=== PATIENT | male | born 1960 | race Two or more races ===

== ENCOUNTER 2020-08-31 19:48 | Inpatient (IN) | payer OTHER ==
[~2020-08-31] VITALS: Ht 172.7 cm; Wt 79.5 kg
[2020-08-31 20:56] LABS: BASOPHILS % (AUTO) 0.8 % (0.0-2.0); EOSINOPHILS % (AUTO) 3.9 % (1.0-6.0); HEMATOCRIT 44.2 % (41-53); HEMOGLOBIN 15.1 g/dL (13.5-17.5); LYMPHOCYTES # (AUTO) 1.7 K/uL (1.0-4.8); LYMPHOCYTES % (AUTO) 27.7 % (22.0-44.0); MEAN CORPUSCULAR HEMOGLOBIN 32.8 pg (26.0-34.0); MEAN CORPUSCULAR HGB CONC 34.2 G/dL (31.0-37.0); MEAN CORPUSCULAR VOLUME 96 fL (80-100); MONOCYTES # (AUTO) 0.5 K/uL (0.1-1.0); MONOCYTES % (AUTO) 8.2 % (2.0-9.0); NEUTROPHILS # (AUTO) 3.7 K/uL (1.8-7.7); NEUTROPHILS % (AUTO) 59.4 % (40.0-70.0); PLATELET COUNT (AUTO) 263 K/uL (150-450); RED BLOOD CELL COUNT(AUTO) 4.61 MIL/uL (4.50-5.90); RED CELL DISTRIBUTION WIDTH 12.8 % (11.5-14.5)
[2020-08-31 21:17] LABS: ANION GAP 7 mmol/L (8-16); CALCIUM, TOTAL 9.7 mg/dL (8.8-10.5); CARBON DIOXIDE 28 mmol/L (22-29); CHLORIDE 102 mmol/L (98-107); CREATININE 0.61 mg/dL (0.60-1.30); GLOMERULAR FILTR. RATE CALC > 60 mL/min (>60); GLUCOSE,RANDOM 85 mg/dL (70-110); POTASSIUM 4.1 mmol/L (3.5-5.1); SODIUM SERUM 137 mmol/L (136-145); UREA NITROGEN, BLOOD 10 mg/dL (7-18)
[2020-08-31 21:25] LABS: ALANINE AMINOTRANSFERASE 17 U/L (12-78); ALBUMIN 3.7 g/dL (3.4-5.0); ALKALINE PHOSPHATASE 128 U/L (46-116); ASPARTATE AMINOTRANSFERASE 37 U/L (15-37); BILIRUBIN,TOTAL 0.7 mg/dL (0.1-1.0); TOTAL PROTEIN, SERUM 8.4 g/dL (6.4-8.2)
[2020-08-31] MEDS ORDERED: CARB-98 GT (21:46)
[2020-08-31] MEDS ORDERED: AMAN-6 GT (21:46)
[2020-08-31] MEDS ORDERED: ENOX30DI5 SQ (21:46)
[2020-08-31] MEDS ORDERED: ENTA200T18 GT (21:46)
[2020-08-31] MEDS ORDERED: BISA-151 PR (21:46)
[2020-08-31] MEDS ORDERED: CEFX2I IV (21:46)
[2020-08-31] MEDS ORDERED: HYDR-4031 GT (21:46)
[2020-08-31 22:24] LABS: COVID AG,FIA SOURCE NASOPHARYNGEAL
[2020-08-31 22:28] LABS: APPEARANCE,URINE CLEAR (CLEAR); BILIRUBIN,URINE NEGATIVE (NEGATIVE); GLUCOSE, URINE (UA) NEGATIVE (NEGATIVE); KETONES,URINE 40 mg/dL (NEGATIVE); LEUKOCYTE ESTERASE ,URINE MODERATE (NEGATIVE); OCCULT BLOOD,URINE NEGATIVE (NEGATIVE); PROTEIN,URINE NEGATIVE (NEGATIVE); UROBILINOGEN,URINE 0.2 mg/dL (<=1.0)
[2020-08-31 22:30] LABS: BACTERIA,URINE Rare /HPF (None Seen); NITRATE,URINE NEGATIVE (NEGATIVE); RBC,URINE 0-2 /HPF (0-2); SQUAMOUS EPITHELIAL CELL,UR Rare /LPF (None Seen)
[2020-08-31 22:34] LABS: AMPHET/METH SCREEN,URINE NEGATIVE (NEGATIVE); BARBITURATE SCREEN, URINE NEGATIVE (NEGATIVE); BENZODIAZEPINES SCREEN,URINE NEGATIVE (NEGATIVE); CANNABINOID SCREEN,URINE NEGATIVE (NEGATIVE); COCAINE SCREEN,URINE NEGATIVE (NEGATIVE); METHADONE SCREEN, URINE NEGATIVE (NEGATIVE); OPIATE SCREEN,URINE NEGATIVE (NEGATIVE); PHENCYCLIDINE SCREEN,URINE NEGATIVE (NEGATIVE)
[2020-09-01] MEDS ORDERED: MORPHINE SULFATE 2 MG/ML SYRINGE IVP PRN (00:15)
[2020-09-01] MEDS ORDERED: BISACODYL 10 MG RECTAL RECTAL SUPPOSITORY PR PRN (00:15)
[2020-09-01] MEDS ORDERED: ALBUTEROL SULFATE 2.5 MG/0.5 ML NEB SOLUTION NEB PRN (00:15)
[2020-09-01] MEDS ORDERED: ONDANSETRON HCL 4 MG/2 ML VIAL IVP PRN (00:15)
[2020-09-01] MEDS ORDERED: MAGNESIUM HYDROXIDE SUSPENSION 30 ML UDCUP PO PRN (00:15)
[2020-09-01] MEDS ORDERED: ACETAMINOPHEN 325 MG TABLET PO PRN (00:15)
[2020-09-01] MEDS ORDERED: BISACODYL 5 MG EC TABLET PEG PRN (00:15)
[2020-09-01] MEDS ORDERED: IPRATROPIUM BROMIDE 0.5 MG/2.5 ML NEB SOLUTION NEB PRN (00:15)
[2020-09-01] MEDS ORDERED: CARB-98 GT (03:13)
[2020-09-01] MEDS ORDERED: ENTA200T18 GT (03:13)
[2020-09-01] MEDS ORDERED: HEPARIN SODIUM,PORCINE 5,000 UNITS/ML VIAL SQ SCH (08:00)
[2020-09-01] MEDS: ENTACAPONE 200 MG TABLET GT SCH ×3 (09:00→20:56)
[2020-09-01] MEDS: AMANTADINE HCL 100 MG CAPSULE GT SCH ×2 (09:00→20:56)
[2020-09-01] MEDS: CARBIDOPA/LEVODOPA 25-100 MG TABLET GT SCH ×4 (09:00→20:56)
[2020-09-01] MEDS ORDERED: DOCUSATE SODIUM 100 MG CAPSULE PO SCH (09:00)
[2020-09-01] MEDS: ENOXAPARIN SODIUM 30 MG/0.3 ML PF SYRINGE SQ SCH (09:00)
[2020-09-01] MEDS ORDERED: CefTRIAXone SODIUM 2 GM/VIAL IV SCH (09:00)
[2020-09-01] MEDS ORDERED: CefTRIAXone 1 GM/DEXTROSE 50 ML IV SCH (09:00)
[2020-09-01] MEDS: CefTRIAXone SODIUM 2 GM in DEXTROSE 5%-WATER 50 ML IV SCH (09:00)
[2020-09-01 13:34] VITALS: BP 128/78
[2020-09-01 16:09] VITALS: BP 132/75
[2020-09-01 19:03] VITALS: BP 128/76
[2020-09-01 20:02] VITALS: BP 126/81
[2020-09-01] MEDS: ZOLPIDEM TARTRATE 5 MG TABLET PO PRN (20:56)
[2020-09-01] MEDS: HYDROCODONE/ACETAMINOPHEN 5-325 MG TABLET PO PRN (20:57)
[2020-09-01] MEDS: DOCUSATE SODIUM 100 MG/10 ML LIQUID UDCUP GT SCH (20:57)
[2020-09-01 22:59] VITALS: BP 109/65
[2020-09-02 03:45] VITALS: BP 101/67
[2020-09-02] MEDS: HYDROCODONE/ACETAMINOPHEN 5-325 MG TABLET PO PRN (05:33)
[2020-09-02 06:15] LABS: BASOPHILS % (AUTO) 0.4 % (0.0-2.0); EOSINOPHILS % (AUTO) 3.2 % (1.0-6.0); HEMATOCRIT 41.2 % (41-53); HEMOGLOBIN 14.3 g/dL (13.5-17.5); LYMPHOCYTES # (AUTO) 1.6 K/uL (1.0-4.8); LYMPHOCYTES % (AUTO) 28.6 % (22.0-44.0); MEAN CORPUSCULAR HGB CONC 34.6 G/dL (31.0-37.0); MEAN CORPUSCULAR VOLUME 95 fL (80-100); MONOCYTES # (AUTO) 0.6 K/uL (0.1-1.0); MONOCYTES % (AUTO) 9.8 % (2.0-9.0); NEUTROPHILS # (AUTO) 3.3 K/uL (1.8-7.7); PLATELET COUNT (AUTO) 282 K/uL (150-450); RED BLOOD CELL COUNT(AUTO) 4.33 MIL/uL (4.50-5.90); RED CELL DISTRIBUTION WIDTH 12.7 % (11.5-14.5)
[2020-09-02 06:36] LABS: ALANINE AMINOTRANSFERASE 36 U/L (12-78); ALBUMIN 3.5 g/dL (3.4-5.0); ALKALINE PHOSPHATASE 122 U/L (46-116); ANION GAP 6 mmol/L (8-16); ASPARTATE AMINOTRANSFERASE 24 U/L (15-37); BILIRUBIN,TOTAL 0.6 mg/dL (0.1-1.0); CALCIUM, TOTAL 9.2 mg/dL (8.8-10.5); CARBON DIOXIDE 29 mmol/L (22-29); CHLORIDE 102 mmol/L (98-107); GLOMERULAR FILTR. RATE CALC > 60 mL/min (>60); GLUCOSE,RANDOM 111 mg/dL (70-110); POTASSIUM 3.8 mmol/L (3.5-5.1); SODIUM SERUM 137 mmol/L (136-145); TOTAL PROTEIN, SERUM 7.3 g/dL (6.4-8.2); UREA NITROGEN, BLOOD 19 mg/dL (7-18)
[2020-09-02 08:16] VITALS: BP 100/59
[2020-09-02] MEDS: DOCUSATE SODIUM 100 MG/10 ML LIQUID UDCUP GT SCH ×2 (08:45→21:25)
[2020-09-02] MEDS: AMANTADINE HCL 100 MG CAPSULE GT SCH ×2 (08:46→21:25)
[2020-09-02] MEDS: ENOXAPARIN SODIUM 30 MG/0.3 ML PF SYRINGE SQ SCH (08:46)
[2020-09-02] MEDS: CARBIDOPA/LEVODOPA 25-100 MG TABLET GT SCH ×4 (08:46→21:25)
[2020-09-02] MEDS: ENTACAPONE 200 MG TABLET GT SCH ×3 (08:46→21:25)
[2020-09-02] MEDS: CefTRIAXone SODIUM 2 GM in DEXTROSE 5%-WATER 50 ML IV SCH (08:46)
[2020-09-02] MEDS ORDERED: SODIUM CHLORIDE 0.9% 250 ML IV ONE (08:51)
[2020-09-02 11:24] LABS: PHOSPHORUS 3.1 mg/dL (2.5-4.9)
[2020-09-02 16:27] VITALS: BP 113/74
[2020-09-02 17:48] LABS: AMPHET/METH SCREEN,URINE NEGATIVE (NEGATIVE); BARBITURATE SCREEN, URINE NEGATIVE (NEGATIVE); BENZODIAZEPINES SCREEN,URINE NEGATIVE (NEGATIVE); CANNABINOID SCREEN,URINE NEGATIVE (NEGATIVE); COCAINE SCREEN,URINE NEGATIVE (NEGATIVE); METHADONE SCREEN, URINE NEGATIVE (NEGATIVE); OPIATE SCREEN,URINE NEGATIVE (NEGATIVE)
[2020-09-02 18:00] LABS: PHENCYCLIDINE SCREEN,URINE NEGATIVE (NEGATIVE)
[2020-09-02 20:09] VITALS: BP 128/77
[2020-09-02] MEDS: RisperiDONE 1 MG TABLET PO SCH (21:25)
[2020-09-03 00:26] VITALS: BP 110/71
[2020-09-03 04:02] VITALS: BP 104/71
[2020-09-03 06:48] LABS: BASOPHILS % (AUTO) 0.7 % (0.0-2.0); EOSINOPHILS % (AUTO) 3.4 % (1.0-6.0); LYMPHOCYTES # (AUTO) 1.5 K/uL (1.0-4.8); LYMPHOCYTES % (AUTO) 28.9 % (22.0-44.0); MEAN CORPUSCULAR HEMOGLOBIN 33.3 pg (26.0-34.0); MEAN CORPUSCULAR VOLUME 95 fL (80-100); MONOCYTES # (AUTO) 0.5 K/uL (0.1-1.0); MONOCYTES % (AUTO) 9.7 % (2.0-9.0); NEUTROPHILS % (AUTO) 57.3 % (40.0-70.0); PLATELET COUNT (AUTO) 254 K/uL (150-450); RED CELL DISTRIBUTION WIDTH 12.5 % (11.5-14.5)
[2020-09-03 07:14] LABS: ALANINE AMINOTRANSFERASE 26 U/L (12-78); ALBUMIN 3.5 g/dL (3.4-5.0); ALKALINE PHOSPHATASE 111 U/L (46-116); ANION GAP 7 mmol/L (8-16); ASPARTATE AMINOTRANSFERASE 24 U/L (15-37); BILIRUBIN,TOTAL 0.6 mg/dL (0.1-1.0); CALCIUM, TOTAL 9.2 mg/dL (8.8-10.5); CARBON DIOXIDE 29 mmol/L (22-29); CHLORIDE 103 mmol/L (98-107); GLOMERULAR FILTR. RATE CALC > 60 mL/min (>60); GLUCOSE,RANDOM 99 mg/dL (70-110); POTASSIUM 3.9 mmol/L (3.5-5.1); SODIUM SERUM 139 mmol/L (136-145); TOTAL PROTEIN, SERUM 7.3 g/dL (6.4-8.2); UREA NITROGEN, BLOOD 9 mg/dL (7-18)
[2020-09-03 07:41] VITALS: BP 120/76
[2020-09-03] MEDS: AMANTADINE HCL 100 MG CAPSULE GT SCH ×2 (08:53→20:36)
[2020-09-03] MEDS: ENTACAPONE 200 MG TABLET GT SCH ×3 (08:53→20:36)
[2020-09-03] MEDS: DOCUSATE SODIUM 100 MG/10 ML LIQUID UDCUP GT SCH ×2 (08:54→20:36)
[2020-09-03] MEDS: CARBIDOPA/LEVODOPA 25-100 MG TABLET GT SCH ×4 (08:54→20:36)
[2020-09-03] MEDS: RisperiDONE 1 MG TABLET PO SCH ×2 (08:54→20:36)
[2020-09-03] MEDS: ENOXAPARIN SODIUM 30 MG/0.3 ML PF SYRINGE SQ SCH (09:05)
[2020-09-03] MEDS: CefTRIAXone SODIUM 2 GM in DEXTROSE 5%-WATER 50 ML IV SCH (09:36)
[2020-09-03 12:16] VITALS: BP 116/76
[2020-09-03 15:50] VITALS: BP_SYST 125; BP_SYST 154; BP_DIAS 81; BP_DIAS 93
[2020-09-03 20:05] VITALS: BP 102/60
[2020-09-04 00:36] VITALS: BP 112/73
[2020-09-04 04:38] VITALS: BP 106/82
[2020-09-04 07:21] VITALS: BP 110/78
[2020-09-04] MEDS: ENTACAPONE 200 MG TABLET GT SCH ×4 (09:00→20:34)
[2020-09-04] MEDS ORDERED: WATER IV SCH (09:00)
[2020-09-04] MEDS ORDERED: DEXTROSE 5% IV SCH (09:00)
[2020-09-04] MEDS: RisperiDONE 1 MG TABLET PO SCH ×3 (09:00→20:34)
[2020-09-04] MEDS: ENOXAPARIN SODIUM 40 MG/0.4 ML PF SYRINGE SQ SCH ×2 (09:00→11:51)
[2020-09-04] MEDS ORDERED: CEFTRIAXONE SODIUM IV SCH (09:00)
[2020-09-04] MEDS: DOCUSATE SODIUM 100 MG/10 ML LIQUID UDCUP GT SCH ×2 (09:00→20:34)
[2020-09-04] MEDS: AMANTADINE HCL 100 MG CAPSULE GT SCH ×3 (09:00→20:34)
[2020-09-04] MEDS: CARBIDOPA/LEVODOPA 25-100 MG TABLET GT SCH ×5 (09:22→20:34)
[2020-09-04] MEDS: HydrOXYzine PAMOATE 25 MG CAPSULE GT PRN (11:51)
[2020-09-04] MEDS: LEVOFLOXACIN 500 MG/D5% WATER 100 ML IV SCH (15:53)
[2020-09-04] MEDS ORDERED: SODIUM CHLORIDE 0.9% 500 ML IV ONE (15:59)
[2020-09-04 19:43] VITALS: BP 101/62
[2020-09-04] MEDS: ZOLPIDEM TARTRATE 5 MG TABLET PO PRN (20:34)
[2020-09-04] MEDS: HYDROCODONE/ACETAMINOPHEN 5-325 MG TABLET PO PRN (20:35)
[2020-09-04 23:38] VITALS: BP 112/65
[2020-09-05] MEDS: HYDROCODONE/ACETAMINOPHEN 5-325 MG TABLET PO PRN ×3 (03:03→19:54)
[2020-09-05 04:14] VITALS: BP 121/68
[2020-09-05 07:27] VITALS: BP 118/73
[2020-09-05] MEDS: AMANTADINE HCL 100 MG CAPSULE GT SCH ×2 (08:57→19:53)
[2020-09-05] MEDS: HydrOXYzine PAMOATE 25 MG CAPSULE GT PRN (08:57)
[2020-09-05] MEDS: CARBIDOPA/LEVODOPA 25-100 MG TABLET GT SCH ×4 (08:57→19:53)
[2020-09-05] MEDS: RisperiDONE 1 MG TABLET PO SCH ×2 (08:57→19:53)
[2020-09-05] MEDS: DOCUSATE SODIUM 100 MG/10 ML LIQUID UDCUP GT SCH ×2 (08:57→19:54)
[2020-09-05] MEDS: ENTACAPONE 200 MG TABLET GT SCH ×3 (08:57→19:53)
[2020-09-05] MEDS: ENOXAPARIN SODIUM 40 MG/0.4 ML PF SYRINGE SQ SCH (08:57)
[2020-09-05 15:05] VITALS: BP 103/73
[2020-09-05] MEDS: LEVOFLOXACIN 500 MG/D5% WATER 100 ML IV SCH (15:32)
[2020-09-05 19:45] VITALS: BP 101/64
[2020-09-05] MEDS: ZOLPIDEM TARTRATE 5 MG TABLET PO PRN (19:56)
[2020-09-05 23:40] VITALS: BP 95/60
[2020-09-06] MEDS: HYDROCODONE/ACETAMINOPHEN 5-325 MG TABLET PO PRN (00:35)
[2020-09-06 03:37] VITALS: BP 106/66
[2020-09-06 07:30] VITALS: BP 104/72
[2020-09-06] MEDS: CARBIDOPA/LEVODOPA 25-100 MG TABLET GT SCH ×4 (09:36→20:32)
[2020-09-06] MEDS: ENOXAPARIN SODIUM 40 MG/0.4 ML PF SYRINGE SQ SCH (09:36)
[2020-09-06] MEDS: ENTACAPONE 200 MG TABLET GT SCH ×3 (09:36→20:32)
[2020-09-06] MEDS: DOCUSATE SODIUM 100 MG/10 ML LIQUID UDCUP GT SCH ×2 (09:36→20:32)
[2020-09-06] MEDS: AMANTADINE HCL 100 MG CAPSULE GT SCH ×2 (09:36→20:32)
[2020-09-06] MEDS: RisperiDONE 1 MG TABLET PO SCH ×2 (09:36→20:32)
[2020-09-06] MEDS ORDERED: HALOPERIDOL LACTATE 5 MG/ML VIAL IM PRN (11:00)
[2020-09-06] MEDS ORDERED: LORazepam 2 MG/ML VIAL IVP PRN (11:00)
[2020-09-06 11:30] LABS: BASOPHILS % (AUTO) 0.4 % (0.0-2.0); HEMATOCRIT 37.9 % (41-53); HEMOGLOBIN 13.2 g/dL (13.5-17.5); LYMPHOCYTES # (AUTO) 0.9 K/uL (1.0-4.8); LYMPHOCYTES % (AUTO) 11.9 % (22.0-44.0); MEAN CORPUSCULAR HEMOGLOBIN 33.3 pg (26.0-34.0); MEAN CORPUSCULAR HGB CONC 34.8 G/dL (31.0-37.0); MEAN CORPUSCULAR VOLUME 96 fL (80-100); MONOCYTES # (AUTO) 0.5 K/uL (0.1-1.0); MONOCYTES % (AUTO) 6.3 % (2.0-9.0); NEUTROPHILS # (AUTO) 5.7 K/uL (1.8-7.7); NEUTROPHILS % (AUTO) 79.4 % (40.0-70.0); PLATELET COUNT (AUTO) 241 K/uL (150-450); RED BLOOD CELL COUNT(AUTO) 3.96 MIL/uL (4.50-5.90); RED CELL DISTRIBUTION WIDTH 12.7 % (11.5-14.5)
[2020-09-06 11:44] VITALS: BP 101/67
[2020-09-06 12:14] LABS: ALANINE AMINOTRANSFERASE 11 U/L (12-78); ALBUMIN 3.2 g/dL (3.4-5.0); ALKALINE PHOSPHATASE 119 U/L (46-116); ANION GAP 9 mmol/L (8-16); ASPARTATE AMINOTRANSFERASE 21 U/L (15-37); BILIRUBIN,TOTAL 0.5 mg/dL (0.1-1.0); CALCIUM, TOTAL 8.7 mg/dL (8.8-10.5); CARBON DIOXIDE 25 mmol/L (22-29); CHLORIDE 103 mmol/L (98-107); CREATININE 0.55 mg/dL (0.60-1.30); GLOMERULAR FILTR. RATE CALC > 60 mL/min (>60); GLUCOSE,RANDOM 116 mg/dL (70-110); POTASSIUM 3.8 mmol/L (3.5-5.1); SODIUM SERUM 137 mmol/L (136-145); TOTAL PROTEIN, SERUM 6.9 g/dL (6.4-8.2); UREA NITROGEN, BLOOD 10 mg/dL (7-18)
[2020-09-06 15:42] VITALS: BP 102/58
[2020-09-06] MEDS: LEVOFLOXACIN 500 MG/D5% WATER 100 ML IV SCH (15:57)
[2020-09-06 19:52] VITALS: BP 102/59
[2020-09-06] MEDS: ZOLPIDEM TARTRATE 5 MG TABLET PO PRN (20:32)
[2020-09-06 23:16] VITALS: BP 97/52
[2020-09-07 04:00] VITALS: BP 116/59
[2020-09-07 07:03] LABS: BASOPHILS % (AUTO) 0.4 % (0.0-2.0); EOSINOPHILS % (AUTO) 4.5 % (1.0-6.0); HEMATOCRIT 37.2 % (41-53); HEMOGLOBIN 12.8 g/dL (13.5-17.5); LYMPHOCYTES # (AUTO) 1.5 K/uL (1.0-4.8); LYMPHOCYTES % (AUTO) 27.7 % (22.0-44.0); MEAN CORPUSCULAR HGB CONC 34.5 G/dL (31.0-37.0); MEAN CORPUSCULAR VOLUME 96 fL (80-100); MONOCYTES # (AUTO) 0.5 K/uL (0.1-1.0); MONOCYTES % (AUTO) 10.1 % (2.0-9.0); NEUTROPHILS % (AUTO) 57.3 % (40.0-70.0); PLATELET COUNT (AUTO) 241 K/uL (150-450); RED BLOOD CELL COUNT(AUTO) 3.88 MIL/uL (4.50-5.90); RED CELL DISTRIBUTION WIDTH 12.7 % (11.5-14.5)
[2020-09-07 07:25] LABS: ALANINE AMINOTRANSFERASE 35 U/L (12-78); ALKALINE PHOSPHATASE 121 U/L (46-116); ANION GAP 7 mmol/L (8-16); ASPARTATE AMINOTRANSFERASE 21 U/L (15-37); BILIRUBIN,TOTAL 0.3 mg/dL (0.1-1.0); CALCIUM, TOTAL 8.8 mg/dL (8.8-10.5); CARBON DIOXIDE 27 mmol/L (22-29); CHLORIDE 105 mmol/L (98-107); CREATININE 0.58 mg/dL (0.60-1.30); GLOMERULAR FILTR. RATE CALC > 60 mL/min (>60); GLUCOSE,RANDOM 111 mg/dL (70-110); POTASSIUM 3.8 mmol/L (3.5-5.1); SODIUM SERUM 139 mmol/L (136-145); TOTAL PROTEIN, SERUM 6.6 g/dL (6.4-8.2); UREA NITROGEN, BLOOD 12 mg/dL (7-18)
[2020-09-07 07:58] VITALS: BP 108/60
[2020-09-07] MEDS: ENTACAPONE 200 MG TABLET GT SCH ×3 (09:02→20:24)
[2020-09-07] MEDS: RisperiDONE 1 MG TABLET PO SCH ×2 (09:02→20:24)
[2020-09-07] MEDS: CARBIDOPA/LEVODOPA 25-100 MG TABLET GT SCH ×4 (09:02→20:24)
[2020-09-07] MEDS: ENOXAPARIN SODIUM 40 MG/0.4 ML PF SYRINGE SQ SCH (09:02)
[2020-09-07] MEDS: DOCUSATE SODIUM 100 MG/10 ML LIQUID UDCUP GT SCH ×2 (09:02→20:24)
[2020-09-07] MEDS: AMANTADINE HCL 100 MG CAPSULE GT SCH ×2 (09:02→20:25)
[2020-09-07 15:26] VITALS: BP 100/66
[2020-09-07] MEDS: LEVOFLOXACIN 500 MG/D5% WATER 100 ML IV SCH (16:27)
[2020-09-07] MEDS ORDERED: SODIUM CHLORIDE 0.9% 500 ML IV ONE (16:37)
[2020-09-07 19:18] VITALS: BP 128/68
[2020-09-07] MEDS: ZOLPIDEM TARTRATE 5 MG TABLET PO PRN (20:24)
[2020-09-07 23:25] VITALS: BP 117/66
[2020-09-08 05:30] VITALS: BP 120/62
[2020-09-08] MEDS: HydrOXYzine PAMOATE 25 MG CAPSULE GT PRN (08:34)
[2020-09-08] MEDS: RisperiDONE 1 MG TABLET PO SCH ×2 (08:35→20:35)
[2020-09-08] MEDS: ENTACAPONE 200 MG TABLET GT SCH ×3 (08:35→20:35)
[2020-09-08] MEDS: CARBIDOPA/LEVODOPA 25-100 MG TABLET GT SCH ×4 (08:35→20:35)
[2020-09-08] MEDS: AMANTADINE HCL 100 MG CAPSULE GT SCH ×2 (08:35→20:35)
[2020-09-08] MEDS: ENOXAPARIN SODIUM 40 MG/0.4 ML PF SYRINGE SQ SCH (09:25)
[2020-09-08] MEDS: DOCUSATE SODIUM 100 MG/10 ML LIQUID UDCUP GT SCH ×2 (09:25→20:34)
[2020-09-08 11:06] LABS: BASOPHILS % (AUTO) 0.5 % (0.0-2.0); EOSINOPHILS % (AUTO) 2.8 % (1.0-6.0); HEMATOCRIT 40.1 % (41-53); HEMOGLOBIN 13.6 g/dL (13.5-17.5); LYMPHOCYTES # (AUTO) 1.1 K/uL (1.0-4.8); LYMPHOCYTES % (AUTO) 18.5 % (22.0-44.0); MEAN CORPUSCULAR HEMOGLOBIN 32.5 pg (26.0-34.0); MEAN CORPUSCULAR HGB CONC 33.8 G/dL (31.0-37.0); MEAN CORPUSCULAR VOLUME 96 fL (80-100); MONOCYTES # (AUTO) 0.4 K/uL (0.1-1.0); MONOCYTES % (AUTO) 6.9 % (2.0-9.0); NEUTROPHILS # (AUTO) 4.3 K/uL (1.8-7.7); NEUTROPHILS % (AUTO) 71.3 % (40.0-70.0); PLATELET COUNT (AUTO) 248 K/uL (150-450); RED BLOOD CELL COUNT(AUTO) 4.17 MIL/uL (4.50-5.90); RED CELL DISTRIBUTION WIDTH 12.7 % (11.5-14.5)
[2020-09-08 11:23] LABS: ALANINE AMINOTRANSFERASE 16 U/L (12-78); ALBUMIN 3.2 g/dL (3.4-5.0); ALKALINE PHOSPHATASE 126 U/L (46-116); ANION GAP 10 mmol/L (8-16); ASPARTATE AMINOTRANSFERASE 21 U/L (15-37); BILIRUBIN,TOTAL 0.4 mg/dL (0.1-1.0); CALCIUM, TOTAL 9.1 mg/dL (8.8-10.5); CARBON DIOXIDE 26 mmol/L (22-29); CHLORIDE 103 mmol/L (98-107); CREATININE 0.64 mg/dL (0.60-1.30); GLOMERULAR FILTR. RATE CALC > 60 mL/min (>60); GLUCOSE,RANDOM 127 mg/dL (70-110); POTASSIUM 4.2 mmol/L (3.5-5.1); SODIUM SERUM 139 mmol/L (136-145); TOTAL PROTEIN, SERUM 7.2 g/dL (6.4-8.2); UREA NITROGEN, BLOOD 10 mg/dL (7-18)
[2020-09-08 16:01] VITALS: BP 115/72
[2020-09-08] MEDS: LEVOFLOXACIN 500 MG/D5% WATER 100 ML IV SCH (16:42)
[2020-09-08 19:27] VITALS: BP 133/73
[2020-09-08 23:56] VITALS: BP 123/59
[2020-09-09] MEDS: ZOLPIDEM TARTRATE 5 MG TABLET PO PRN (01:12)
[2020-09-09 04:12] VITALS: BP 122/71
[2020-09-09] MEDS: ENTACAPONE 200 MG TABLET GT SCH ×3 (08:08→20:43)
[2020-09-09] MEDS: DOCUSATE SODIUM 100 MG/10 ML LIQUID UDCUP GT SCH ×2 (08:08→20:43)
[2020-09-09] MEDS: CARBIDOPA/LEVODOPA 25-100 MG TABLET GT SCH ×4 (08:08→20:43)
[2020-09-09] MEDS: RisperiDONE 1 MG TABLET PO SCH ×2 (08:08→20:43)
[2020-09-09] MEDS: ENOXAPARIN SODIUM 40 MG/0.4 ML PF SYRINGE SQ SCH (08:08)
[2020-09-09] MEDS: AMANTADINE HCL 100 MG CAPSULE GT SCH ×2 (08:08→20:43)
[2020-09-09 08:15] VITALS: BP 108/59
[2020-09-09 15:10] VITALS: BP 113/83
[2020-09-09] MEDS ORDERED: SODIUM CHLORIDE 0.9% 500 ML IV ONE (16:22)
[2020-09-09] MEDS: LEVOFLOXACIN 500 MG/D5% WATER 100 ML IV SCH (16:28)
[2020-09-09 19:25] VITALS: BP 109/69
[2020-09-10 00:34] VITALS: BP 102/66
[2020-09-10 04:20] VITALS: BP 105/70
[2020-09-10] MEDS: AMANTADINE HCL 100 MG CAPSULE GT SCH ×2 (08:58→20:15)
[2020-09-10] MEDS: ENTACAPONE 200 MG TABLET GT SCH ×3 (08:58→20:15)
[2020-09-10] MEDS: DOCUSATE SODIUM 100 MG/10 ML LIQUID UDCUP GT SCH ×2 (08:58→20:15)
[2020-09-10] MEDS: RisperiDONE 1 MG TABLET PO SCH ×2 (08:58→20:16)
[2020-09-10] MEDS: HydrOXYzine PAMOATE 25 MG CAPSULE GT PRN (08:58)
[2020-09-10] MEDS: CARBIDOPA/LEVODOPA 25-100 MG TABLET GT SCH ×4 (08:58→20:15)
[2020-09-10] MEDS: ENOXAPARIN SODIUM 40 MG/0.4 ML PF SYRINGE SQ SCH (08:59)
[2020-09-10] MEDS ORDERED: LEVO750T68 PO (13:10)
[2020-09-10] MEDS ORDERED: RISP1TAB89 PO (13:10)
[2020-09-10 15:46] VITALS: BP 106/59
[2020-09-10] MEDS: LEVOFLOXACIN 500 MG TABLET GT SCH (16:39)
[2020-09-10 19:50] VITALS: BP 107/70
[2020-09-10] MEDS: ZOLPIDEM TARTRATE 5 MG TABLET PO PRN (20:15)
[2020-09-11 00:40] VITALS: BP 94/59
[2020-09-11 05:00] VITALS: BP 96/63
[2020-09-11 07:24] VITALS: BP 107/64
[2020-09-11] MEDS: CARBIDOPA/LEVODOPA 25-100 MG TABLET GT SCH ×4 (08:06→22:21)
[2020-09-11] MEDS: LEVOFLOXACIN 500 MG TABLET GT SCH (08:06)
[2020-09-11] MEDS: AMANTADINE HCL 100 MG CAPSULE GT SCH ×2 (08:06→22:21)
[2020-09-11] MEDS: ENTACAPONE 200 MG TABLET GT SCH ×3 (08:06→22:21)
[2020-09-11] MEDS: RisperiDONE 1 MG TABLET PO SCH ×2 (08:06→22:21)
[2020-09-11] MEDS: DOCUSATE SODIUM 100 MG/10 ML LIQUID UDCUP GT SCH ×2 (08:07→22:21)
[2020-09-11] MEDS: ENOXAPARIN SODIUM 40 MG/0.4 ML PF SYRINGE SQ SCH (08:07)
[2020-09-11 15:36] VITALS: BP 104/66
[2020-09-11 20:00] VITALS: BP 101/58
[2020-09-11 23:20] VITALS: BP 94/56
[2020-09-12 03:35] VITALS: BP 98/59
[2020-09-12 08:32] VITALS: BP 132/72
[2020-09-12] MEDS: ENOXAPARIN SODIUM 40 MG/0.4 ML PF SYRINGE SQ SCH ×2 (09:00→09:21)
[2020-09-12] MEDS: CARBIDOPA/LEVODOPA 25-100 MG TABLET GT SCH ×4 (09:20→20:19)
[2020-09-12] MEDS: AMANTADINE HCL 100 MG CAPSULE GT SCH ×2 (09:20→20:20)
[2020-09-12] MEDS: DOCUSATE SODIUM 100 MG/10 ML LIQUID UDCUP GT SCH ×2 (09:20→20:20)
[2020-09-12] MEDS: ENTACAPONE 200 MG TABLET GT SCH ×3 (09:20→20:19)
[2020-09-12] MEDS: RisperiDONE 1 MG TABLET PO SCH ×2 (09:20→20:19)
[2020-09-12] MEDS: LEVOFLOXACIN 500 MG TABLET GT SCH (09:20)
[2020-09-12 16:04] VITALS: BP 123/97
[2020-09-12 19:20] VITALS: BP 125/63
[2020-09-13] MEDS: AMANTADINE HCL 100 MG CAPSULE GT SCH ×2 (09:00→20:01)
[2020-09-13] MEDS: CARBIDOPA/LEVODOPA 25-100 MG TABLET GT SCH ×4 (09:00→20:00)
[2020-09-13] MEDS: LEVOFLOXACIN 500 MG TABLET GT SCH (09:00)
[2020-09-13] MEDS: ENTACAPONE 200 MG TABLET GT SCH ×3 (09:00→20:00)
[2020-09-13] MEDS: DOCUSATE SODIUM 100 MG/10 ML LIQUID UDCUP GT SCH ×2 (09:00→20:00)
[2020-09-13] MEDS: RisperiDONE 1 MG TABLET PO SCH (09:00)
[2020-09-13] MEDS: ENOXAPARIN SODIUM 40 MG/0.4 ML PF SYRINGE SQ SCH (09:30)
[2020-09-13] MEDS: HydrOXYzine PAMOATE 25 MG CAPSULE GT PRN (16:15)
[2020-09-13] MEDS: RisperiDONE 2 MG TABLET PO SCH (20:00)
[2020-09-13 20:05] VITALS: BP 108/63
[2020-09-13 23:25] VITALS: BP 109/69
[2020-09-14] MEDS: DOCUSATE SODIUM 100 MG/10 ML LIQUID UDCUP GT SCH ×2 (09:00→20:21)
[2020-09-14] MEDS: ENTACAPONE 200 MG TABLET GT SCH ×3 (09:00→20:21)
[2020-09-14] MEDS: AMANTADINE HCL 100 MG CAPSULE GT SCH ×2 (09:00→20:21)
[2020-09-14] MEDS: RisperiDONE 2 MG TABLET PO SCH ×2 (09:00→20:21)
[2020-09-14] MEDS: LEVOFLOXACIN 500 MG TABLET GT SCH ×2 (09:00→18:23)
[2020-09-14] MEDS: CARBIDOPA/LEVODOPA 25-100 MG TABLET GT SCH ×4 (09:00→20:22)
[2020-09-14] MEDS: HydrOXYzine PAMOATE 25 MG CAPSULE GT PRN (18:23)
[2020-09-14 20:21] VITALS: BP 140/69
[2020-09-14 23:45] VITALS: BP 110/66
[2020-09-15 04:13] VITALS: BP 119/70
[2020-09-15] MEDS: DOCUSATE SODIUM 100 MG/10 ML LIQUID UDCUP GT SCH ×3 (09:00→20:03)
[2020-09-15] MEDS: CARBIDOPA/LEVODOPA 25-100 MG TABLET GT SCH ×4 (09:00→20:03)
[2020-09-15] MEDS: AMANTADINE HCL 100 MG CAPSULE GT SCH ×3 (09:00→20:03)
[2020-09-15] MEDS: LEVOFLOXACIN 500 MG TABLET GT SCH ×2 (09:00→13:15)
[2020-09-15] MEDS: ENTACAPONE 200 MG TABLET GT SCH ×4 (09:00→20:03)
[2020-09-15] MEDS: ENOXAPARIN SODIUM 40 MG/0.4 ML PF SYRINGE SQ SCH (09:00)
[2020-09-15] MEDS: RisperiDONE 2 MG TABLET PO SCH (09:00)
[2020-09-15] MEDS: RisperiDONE 4 MG TABLET PO SCH (13:15)
[2020-09-15] MEDS: HydrOXYzine PAMOATE 25 MG CAPSULE GT PRN (13:16)
[2020-09-15 15:41] VITALS: BP 118/72
[2020-09-15 20:02] VITALS: BP 118/95
[2020-09-15 23:46] VITALS: BP 124/69
[2020-09-16 03:25] VITALS: BP 113/62
[2020-09-16 08:07] VITALS: BP 108/70
[2020-09-16] MEDS: CARBIDOPA/LEVODOPA 25-100 MG TABLET GT SCH ×4 (08:45→21:34)
[2020-09-16] MEDS: DOCUSATE SODIUM 100 MG/10 ML LIQUID UDCUP GT SCH ×2 (08:45→21:34)
[2020-09-16] MEDS: ENOXAPARIN SODIUM 40 MG/0.4 ML PF SYRINGE SQ SCH (08:45)
[2020-09-16] MEDS: AMANTADINE HCL 100 MG CAPSULE GT SCH ×2 (08:45→21:34)
[2020-09-16] MEDS: RisperiDONE 2 MG TABLET PO SCH (08:46)
[2020-09-16] MEDS: LEVOFLOXACIN 500 MG TABLET GT SCH (08:46)
[2020-09-16] MEDS: ENTACAPONE 200 MG TABLET GT SCH ×3 (08:46→21:34)
[2020-09-16] MEDS: VALPROIC ACID 250 MG/5 ML SOLUTION UDCUP GT SCH ×2 (10:25→21:34)
[2020-09-16] MEDS: RisperiDONE 4 MG TABLET PO SCH (15:21)
[2020-09-16 16:16] VITALS: BP 101/60
[2020-09-16 20:07] LABS: GLUCOMETER DEV NAME(LOC) 6S.1; GLUCOSE,POINT OF CARE 124 MG/DL (70-110)
[2020-09-16 21:47] VITALS: BP 114/73
[2020-09-17 04:45] VITALS: BP 126/71
[2020-09-17] MEDS: CARBIDOPA/LEVODOPA 25-100 MG TABLET GT SCH ×4 (08:53→21:06)
[2020-09-17] MEDS: ENTACAPONE 200 MG TABLET GT SCH ×3 (08:53→21:06)
[2020-09-17] MEDS: RisperiDONE 2 MG TABLET PO SCH (08:53)
[2020-09-17] MEDS: AMANTADINE HCL 100 MG CAPSULE GT SCH ×2 (08:53→21:06)
[2020-09-17] MEDS: DOCUSATE SODIUM 100 MG/10 ML LIQUID UDCUP GT SCH ×2 (08:53→21:06)
[2020-09-17] MEDS: VALPROIC ACID 250 MG/5 ML SOLUTION UDCUP GT SCH ×2 (08:54→21:06)
[2020-09-17] MEDS: LEVOFLOXACIN 500 MG TABLET GT SCH (08:54)
[2020-09-17] MEDS: ENOXAPARIN SODIUM 40 MG/0.4 ML PF SYRINGE SQ SCH (08:55)
[2020-09-17 12:19] LABS: GLUCOMETER DEV NAME(LOC) 6S.1; GLUCOSE,POINT OF CARE 118 MG/DL (70-110)
[2020-09-17 15:15] VITALS: BP 119/58
[2020-09-17] MEDS: RisperiDONE 4 MG TABLET PO SCH (15:28)
[2020-09-17 19:33] LABS: GLUCOMETER DEV NAME(LOC) 6N.1; GLUCOSE,POINT OF CARE 116 MG/DL (70-110)
[2020-09-17 21:05] VITALS: BP 115/66
[2020-09-18 00:26] VITALS: BP 107/63
[2020-09-18 04:39] VITALS: BP 108/67
[2020-09-18 06:01] LABS: GLUCOMETER DEV NAME(LOC) 6S.1; GLUCOSE,POINT OF CARE 117 MG/DL (70-110)
== END 2020-09-18 06:27 | DRG 690 ==
LOC: EMS 19:48 → 6S 22:55 → 6N 09-01 13:39 → 4E 09-02 16:53 → 6N 09-03 15:34
PROVIDERS: ADMIT Hospitalist; ATTEND Hospitalist
DX: N39.0 Urinary tract infection, site not specified (principal); F20.0 Paranoid schizophrenia; G20 Parkinson's disease; F31.9 Bipolar disorder, unspecified; N31.9 Neuromuscular dysfunction of bladder, unspecified; F41.9 Anxiety disorder, unspecified; R13.10 Dysphagia, unspecified; Z20.822 Contact with and (suspected) exposure to COVID-19; H49.9 Unspecified paralytic strabismus; F29 Unspecified psychosis not due to a substance or known physiological condition; F14.10 Cocaine abuse, uncomplicated; D38.1 Neoplasm of uncertain behavior of trachea, bronchus and lung; M54.5 Low back pain; R27.9 Unspecified lack of coordination; Z93.1 Gastrostomy status; Z79.899 Other long term (current) drug therapy; Z78.1 Physical restraint status
CPT/HCPCS: 80053; 80307; 81001; 82962; 83735; 84100; 85025; 87077; 87086; 87186; 99285; G0378; G0480; J0696; J1650; J1956; J2060; J7040; J7050; J7060